=== PATIENT | male | born 1965 | race African-American/Black ===

== ENCOUNTER → 2019-05-29 12:58 | Outpatient (CLI) | payer OTHER ==
[2013-07-28 08:47] VITALS: BMI 23.6
[~2019-05-29 12:58] MED LIST: NORCO 10/325 TA1 TA1 PO; VENTOLIN HFA18 GM INH
== END | disposition home or self-care (01) ==
LOC: D.RAD 12:58
PROVIDERS: ATTEND Pediatrics
DX: Z02.71 Encounter for disability determination (principal)

== ENCOUNTER 2019-06-28 04:42 | Inpatient (IN) | payer OTHER ==
[~2019-06-28] VITALS: Ht 172.7 cm; Wt 78.6 kg
--- NOTE | ~2019-06-28 | CN ---
PATIENT NAME:ARNAV FORMAN MEDICAL RECORD: [id number] : 63 LOCATION:[facility] D.2126 ADMIT DATE: 06/28/19 ACCOUNT: [id number] CONSULTING PHYSICIAN: ROSELINE DELAROSA MD REFERRING PHYSICIAN: ALEXIS TEJEDA MD DATE OF CONSULTATION: 07/05/2019 DIAGNOSES: 1. Shortness of breath, dyspnea on exertion. 2. Bacteremia. 3. Valvular heart disease, aortic valve abnormality. 4. Angina. 5. Abnormal ECG. 6. Chronic obstructive pulmonary disease. 7. Smoking history. 8. Family history of coronary artery disease. HISTORY OF PRESENT ILLNESS: Mr. Forman presents with shortness of breath, dyspnea on exertion, found to be bacteremic. He had an echocardiogram showing an abnormality of the aortic valve. His bacteremia is clearing; however, physicians involved want transesophageal echo for further evaluation of the valve to evaluate for endocarditis, which was reasonable due to his continued need for antibiotics. As well, he has been having chest pain and chest discomfort compatible with angina, dull aching sensation across the anterior chest, especially with any exertion. His EKG suggests inferior ischemia. He has a family history of coronary artery disease. He has not had a workup for ischemic heart disease himself. PHYSICAL EXAMINATION: CONSTITUTIONAL/GENERAL APPEARANCE: Well nourished, well developed, appears stated age. EYES: Lids and conjunctivae noninjected. No discharge. No pallor. ENT: Lips within normal limit. No cyanosis. No pallor. NECK: Carotid arteries, bilateral normal upstroke. No bruits. No thrills. No jugular venous pressure or distention. CERVICAL LYMPH NODES: Nontender. Nonenlarged. THYROID: Not enlarged. No nodules. CARDIOVASCULAR: Precordial exam, nondisplaced. No heaves or pericardial thrills. Rate and rhythm, regular. Heart sounds, normal S1, normal S2. No S3, no gallop, no rub. Systolic murmur, not heard. Diastolic murmur, not heard. RESPIRATORY: Respiratory effort, unlabored. Normal curvature. No thoracic deformity. No chest wall tenderness. Percussion, resonant. Auscultation, clear. No wheezes, no rales, no rhonchi. ABDOMEN: Soft, nondistended, nontender. No abdominal pain, no vomiting and normal appetite. MUSCULOSKELETAL: No joint tenderness, normal gait, normal tone. SKIN: Warm and dry. OVERALL IMPRESSION: Bacteremia being treated with IV antibiotics, abnormal aortic valve. We will proceed with transesophageal echocardiogram and at the same time, we will do left heart catheterization. TRANSINT:[id number] Voice Confirmation ID: [id number] DOCUMENT ID: [id number] CONSULT REPORT [id number] ARNAV FORMAN JEFFREY MD CC: [id number] DICTATION DATE: 07/05/19 1148 CULTURIST: 07/05/19 1310 ADM IN [address] [place] [address]
--- NOTE | ~2019-06-28 | HEMODYNAMI ---
PATIENT:ARNAV PEREZ MEDICAL RECORD: [id number] : 63 [facility] D[id number] ADMISSION DATE: 06/28/19 Generatedon:07/06/201914:57 Patient name: ARNAV PEREZ Patient #: [id number] : 1965 Date of study: 07/06/2019 Page: Of Hemodynamic Procedure Report Patient Data Patient Demographics Procedure consent was obtained First Name: ARNAV Gender: Male Last Name: CHRIS : 1965 [facility] Initial: L Age: 54 year(s) Patient #: [id number] Race: Black SSN: [id number] Additional ID: [id number] Contact details Address: [address] [address] State: [place] City: [place] Zip code: [address] Admission Admission Data Admission Date: 06/28/2019 Admission Time: 6:21 Arrival Date: 06/28/2019 Arrival Time: 6:21 Admit Source: Other Insurance Payor: Private Room #: D.2126 health insurance [facility] #: [id number] Height (in.): 68.11 BSA: 1.89 (m2) Height (cm.): 173 BMI: 25.06 (kg/m2) Weight (lbs.): 165.35 Weight (kg.): 75 Lab Results Lab Result Date: 07/06/2019 Lab Result Time: 0:00 Biochemistry Name Units Result Min Max BUN mg/dl 17 --(---*)-- 7 18 Creatinine mg/dl 1.3 --(---*)-- 0.6 1.3 eGFR ml/min 67.06798 *-(----)-- 90 120 NONAFRICAN CBC Name Units Result Min Max Hemoglobin g/dl 12.7 -*(----)-- 13.5 17.5 Procedure Procedure Types Cath Procedure Diagnostic Procedure [facility] MIKE Procedure Description Procedure Date Procedure Date: 07/06/2019 Procedure Start Time: 0:00 Procedure Staff Name Function Loco Collins MD Performing Physician Gertrude Galvez RT Monitor Gerry Jernigan RN Nurse Yaz aBez RT Scrub Noam Ortega Pad Making Machine Operator Avi Lantigua CRNA Additional personnel Indication Angina Procedure Data Cath Procedure Fluoroscopy Diagnostic fluoroscopy Total fluoroscopy Time: 0 time: 0 min min Diagnostic fluoroscopy Total fluoroscopy dose: 0 dose: 0 mGy mGy Contrast Material Contrast Material Type Amount (ml) Isovue 300 0 Estimated blood loss: 0 ml Procedure Complications No complications Procedure Medications Medication Administration Route Dosage Oxygen etCO2 Nasal cannula 2 l/min Heparin Flush Bag added to field 2 bags (1000units/500ml NS) 0.9% NaCl I.V. 100 ml/hr Hurricaine [place] P.O. 1 Sprays Hemodynamics Rest BSA: 1.89 (m2) HGB: 12.7 (g/dl) O2 Consumption: Estimated: 247.08 (ml/min) O2 Co nsumption indexed: Estimated:130.73 (ml/min/m) Heart Rate: 102 (bpm) Snapshots Pre Cath Intra NCS Post Cath Vital Signs Time Heart Resp SPO2 etCO2 NIBP (mmHg) Rhythm Pain Sedation Rate (ipm) (%) (mmHg) Status Level (bpm) 14:10:48 105 20 97 13.5 146/113(130) NSR 0 (11) 10(A) , No pain 14:14:56 90 16 98 14.2 157/116(132) NSR 0 (11) 10(A) , No pain 14:19:08 97 18 99 14.2 154/110(134) NSR 0 (11) 10(A) , No pain 14:23:18 118 23 95 13.5 151/124(134) NSR 0 (11) 10(A) , No pain 14:28:02 110 22 95 11.2 126/96(109) NSR 0 (11) 9(A) , No pain 14:31:56 112 34 90 12.7 93/71(88) NSR 0 (11) 9(A) , No pain 14:36:47 114 21 92 0 138/114(130) NSR 0 (11) 9(A) , No pain 14:41:46 125 14 96 0 156/122(134) NSR 0 (11) 9(A) , No pain Medications Time Medication Route Dose Verified Delivered Reason Notes Eff ectiveness by by 14:11:45 Oxygen etCO2 2 Loco Garrett used for Nasal l/min Karina Jernigan RN procedure cannula 14:11:56 Heparin Flush added 2 bags Loco Garrett used for Bag to Karina Jernigan RN procedure (1000units/500ml field NS) 14:12:03 0.9% NaCl I.V. 100 Loco Garrett Per ml/hr Karina Jernigan RN physician 14:13:12 Hurricaine [place] P.O. 1 Loco Garrett Per Sprays Karina Jernigan RN physician Procedure Log Time Note 13:34:25 Diagnostic Cath Status : Urgent 13:37:15 Informed consent obtained and on chart 13:38:47 Lab Result : Hemoglobin 12.7 g/dl 13:38:47 Lab Result : eGFR NONAFRICAN 67.78195 ml/min 13:38:47 Lab Result : BUN 17 mg/dl 13:38:47 Lab Result : Creatinine 1.3 mg/dl 13:40:32 Admit Source: Other 13:40:40 Arrival Date: 06/28/2019 6:21:00 AM 13:41:01 Insurance Payor : Private health insurance 13:41:14 Patient Height : 68.11 inches 13:41:20 Patient Weight : 165.35 lbs 13:42:09 Gerry Jernigan RN sent for patient. Start room use. 13:42:10 Time tracking: Regular hours (M-F 7:00 - 5:00) 13:42:15 Plan of Care:Hemodynamics will remain stable., Cardiac rhythm will remain stable., Comfort level will be maintained., Respiratory function will remain adequate., Patient/ family verbilizes understanding of procedure., Procedure tolerated without complication., Recovers from procedure without complications.. 14:00:47 Patient received from Med II to CCL 2 Alert and oriented. Tansferred to table in Supine position. 14:01:24 Indication : Angina 14:01:30 Warm blankets applied, and skip hugger turned on for patient comfort. 14:01:31 Correct patient and procedure confirmed by team. 14:01:31 ECG and BP/O2 sat monitors applied to patient. 14:04:23 Insertion/operative site no bleeding no hematoma. 14:06:47 2) 60-89 Mildly reduced kidney function, and other findings (as for stage 1) point to kidney disease. 14:09:42 Vital chart was started 14:09:45 Baseline sample Acquired. 14:09:51 Full Disclosure recording started 14:09:57 H&P Date Dictated: 07/06/2019 New H&P dictated by physician.. 14:09:59 Pre-procedure instructions explained to patient. 14:10:00 Pre-op teaching completed and patient verbalized understanding. 14:10:04 Family in patients room. 14:10:05 Patient NPO since Midnight. 14:10:09 Is the patient allergic to Iodine/contrast media? No. 14:10:10 Was the patient premedicated? Yes 14:11:03 Is patient on blood thinner?No 14:11:04 Patient diabetic? No. 14:11:09 Previous problem with sedation/anesthesia? No ? 14:11:12 Snore? Yes 14:11:13 Sleep apnea? No 14:11:13 Deviated septum? Yes 14:11:15 Opens mouth fully? Yes 14:11:16 Sticks out tongue? Yes 14:11:21 Airway obstruction? Yes ASTHMA 14:11:25 Dentures? No ? 14:11:36 Pre procedure: right dorsailis pedis pulse 2+ Normal; easily identifiable; not easily obliterated 14:11:39 Patient pain scale 0/10 ?. 14:11:45 Oxygen 2 l/min etCO2 Nasal cannula was administered by Gerry Jernigan RN; used for procedure; Verbal order read back and verified. 14:11:50 IV patent on arrival in left forearm with 0.9% NaCl at [facility]. 14:11:53 Lab results completed and on chart. 14:11:56 Heparin Flush Bag (1000units/500ml NS) 2 bags added to field was administered by Gerry Jernigan RN; used for procedure; Verbal order read back and verified. 14:11:57 Stress Test: no; N/A ? 14:12:03 0.9% NaCl 100 ml/hr I.V. was administered by Gerry Jernigan RN; Per physician; Verbal order read back and verified. 14:12:04 Risk of Mortality: <0.1 14:12:09 Risk of blood transfusion: 0.6 14:12:13 Risk of RAYMOND: 1.0 14:12:50 Right groin area was prepped with chlora-prep and aped in sterile fashion 14::51 Alarms reviewed by R. N. 14:12:51 Sharps counted by scrub and verified by R.N. 14:13:12 Hurricaine [place] 1 Sprays P.O. was administered by Gerry Jernigan RN; Per physician; Verbal order read back and verified. 14:21:45 Physician arrived 14::46 --------ALL STOP TIME OUT------ ::46 Final Timeout: patient, procedure, and site verified with staff and physician. All members of the team are in agreement. 14:21:50 Right groin site verified by team. 14:21:53 Fire Safety Assessment: A--An alcohol-based skin anteseptic being used preoperatively., C--Open oxygen or nitrous oxide is being used., D--An ESU, laser, or fiber-optic light is being used. 14:21:56 Physical assessment completed. ASA score P 2 - A patient with mild systemic disease as per Loco Collins MD. 14:22:01 Maximum allowable contrast dose (3.7 X eGFR X 0.75)188 ml. 14:22:05 Sedation plan: IV Moderate Sedation Medication:Versed, Fentanyl 14:22:18 Avi Lantigua HYDROGRAPHICAL TECHNICAL OFFICER present and monitoring patient for TIVA. 14:22:36 Noam Ortega Photo Machine Operator present for MIKE. 14:24:46 MIKE started. 14:25:39 MIKE completed. 14:26:06 Use device set Femoral Dx 14:26:07 ACIST Syringe (16781) opened to sterile field. 14:26:07 Bag Decanter (2002S) opened to sterile field. 14:26:08 Medline Cath Pack ([id number]) opened to sterile field. 14:26:09 ACIST Hand Control (39883) opened to sterile field. 14:26:09 ACIST Manifold (33679) opened to sterile field. 14:26:10 DIAGNOSTIC Multipack 5Fr catheter set (BW1349) opened to sterile field. 14:26:10 Tegaderm 4 x 4 (1626W) opened to sterile field. 14:26:11 SHEATH 5FR Concan (CBY114) opened to sterile field. 14:26:12 EMERALD Guide Wire (606-508) opened to sterile field. 14:27:23 pt experiencing trouble breathing at this time with swelling of the tissue of the neck, at this time anesthesia has pt intubated with size 7 et tube, being oxygentated with ambu bag at 23 at the lip. Nurse to assist to ct scan to gain further information. Pt had emesis of brown fluid and some food particles noted. pt airway was suctioned prior to intubation. 14:40:18 while preparing patient for LHC following the MIKE, patient sats dropped and he began vomiting, when attempting to bag the patient, staff noticed his neck bulging, Dr Collins cancelled LHC and ordered a CT of the head and chest. 14:41:03 Procedure ended.(Physican Out) 14:42:09 Fluoroscopy time 00.00 minutes. 14:42:11 Flurop Dose total: 0 14:42:11 Fluoroscopy dose: 0 mGy 14:42:13 Dose Area Product 0 mGy/cm. 14:42:18 Contrast amount:Isovue 300 0ml. 14:42:20 Maximum allowable dose exceeded? No. 14:42:21 Sharps counted by scrub and verified by R.N. 14:42:29 Post Procedure Pulses reassessed and unchanged 14:42:33 Post procedure rhythm: unchanged. 14:42:37 Estimated blood loss: 0 ml 14:42:38 Post procedure instruction explained to patient.Patient verbalizes understanding. 14:42:38 Patient needs reinforcement of post procedure teaching. 14:42:59 Procedure type changed to Cath procedure, Diagnostic procedure, LHC, MIKE 14:42:59 Procedure and supply charges have been captured, reviewed, submitted and are correct. 14:43:04 Procedure Complication : No complications 14:43:07 Vital chart was stopped 14:43:19 MIKE Findings: MIKE w/ cardioversion: no left atrial clot noted (proceed with cardioversion) 14:43:20 Operative report dictated upon procedure completion. 14:43:20 See physician's report for complete and final results. 14:43:25 Report given to ICU. 14:43:28 Patient transfered to ICU with Stretcher. 14:44:02 End room use (Document Last) 14:56:02 End room use (Document Last) 14:56:59 End room use (Document Last) Device Usage Item Name Manufacture Quantity Catalog Hospital Part Current Minimal L ot# / Number Charge Number Stock Stock Serial# Code ACIST Acist 1 56431 [id number] 026480 380936 20 Syringe Medical (73962) Systems Inc Bag Microtek 1 2001S 647684 07475 910317 5 Decanter Medical Inc. () Medline Medline 1 [id number] 037091 19398 248642 5 Cath Pack ([id number]) ACIST Hand Acist 1 95549 880704 109817 658508 5 Control Medical (25237) Systems Inc ACIST Acist 1 50179 638699 164056 076376 5 Manifold Medical (26984) Systems Inc DIAGNOSTIC Cardinal 1 TO2066 073406 79200 921800 30 Stalwart [employer] 5Fr catheter set (LE1451) Tegaderm 4 3M 1 1626W 527954 352581 860168 5 x 4 (1626W) SHEATH 5FR Terumo 1 [id number] 253643 825403 063579 5 Concan (WLK424) [facility] Cardinal 1 897-741 464427 402571 256358 5 Guide [facility] (302-783) Signature Audit [place] Stage Time Signature Unsigned Intra-Procedure 07/06/2019 Gertrude Galvez 2:56:02 PM RT(R) Intra-Procedure 07/06/2019 Gerry Jernigan RN 2:56:59 PM Intra-Procedure 07/06/2019 Loco Collins 2:57:26 PM Signatures Performing Physician : Signature : Loco Collins MD Date : Time : Monitor : Gertrude Galvez RT Signature : Date : Time : Nurse : Gerry Jernigan RN Signature : Date : Time : [facility] [address] [place] [address]
--- NOTE | ~2019-06-28 | TEE ---
PATIENT:ARNAV PEREZ MEDICAL RECORD: [id number] LOCATION[facility] AGE OF PATIENT: 54 ADMISSION DATE: 06/28/19 SEX: M REFERRING PHYSICIAN: INTERPRETING PHYSICIAN: ROSELINE DELAROSA MD TRANSESOPHAGEAL ECHOCARDIOGRAM Date: 07/08/19 MIKE CHARGE Y INDICATIONS: BACTREMIA, ASSESS FOR VEGATIONS/STENOSIS PREMEDICATIONS: PATIENT'S RESPONSE PROCEDURE DOPPLER MEASUREMENTS: LVIT LA 0 PA 0 RA 0 LVOT 0 RVOT 0 Asc. Ao 0 AV Gradient Peak 0 AV Mean 0 AV Area 0 MV Gradient Peak 0 MV Mean 0 MV Area 0 INTERPRETATION: Doppler: 2-D: COLOR FLOW DOPPLER ALL VALVES CLEAR... NORMAL SALINE STUDY: MISCELLANOUS: DIAGNOSIS: PLAN: Snowboarder:Breezy Chacon Filling Carrier: Kanchan SANCHEZ COMMENTS: DATE OF SERVICE: 07/06/2019 PROCEDURE: Transesophageal echo evaluation of valvular structures for possible endocarditis. Conscious sedation was per anesthesia. Continuous heart rate, O2 saturation, blood pressure monitoring all undertaken, all of which remained stable. FINDINGS: TRANSESOPHAGEAL ECHOCARDIOGRAM REPORT [id number] ARNAV PREEZ 1. Left ventricular chamber size is within normal limits. Left ventricular systolic function is normal. Overall ejection fraction estimated at 60%. 2. Left atrium, right atrium and right ventricular chamber sizes are mildly dilated. 3. Valvular structures have normal structure and motion. No evidence of endocarditis. 4. Doppler interrogation reveals no significant valvular insufficiency or stenosis. OVERALL IMPRESSION: No evidence of vegetative endocarditis. TRANSINT:[id number] Voice Confirmation ID: [id number] DOCUMENT ID: [id number] ROSELINE DELAROSA MD CC: [id number] DICTATION DATE: 07/06/19 1429 CEMENT MIXER DRIVER: 07/07/19 0701 ADM IN [facility] [address] [place] [address]
--- NOTE | ~2019-06-28 | TEE ---
PATIENT:ARNAV PEREZ MEDICAL RECORD: [id number] LOCATION:ICU D230 AGE OF PATIENT: 54 ADMISSION DATE: 06/28/19 SEX: M REFERRING PHYSICIAN: INTERPRETING PHYSICIAN: ROSELINE COLLINS MD TRANSESOPHAGEAL ECHOCARDIOGRAM Date: 07/06/19 MIKE CHARGE Y INDICATIONS: BACTREMIA, ASSESS FOR VEGATIONS/STENOSIS PREMEDICATIONS: PATIENT'S RESPONSE PROCEDURE DOPPLER MEASUREMENTS: LVIT LA PA 87.0 RA LVOT 72.0 RVOT 51.0 Asc. Ao 126 AV Gradient Peak 6.3 AV Mean 3.3 AV Area 1.6 MV Gradient Peak 2.8 MV Mean 1.0 MV Area INTERPRETATION: Doppler: 2-D: COLOR FLOW DOPPLER ALL VALVES CLEAR... NORMAL SALINE STUDY: MISCELLANOUS: DIAGNOSIS: PLAN: Rod Bending Machine Operator:1 Dr. Collins Horticulture Worker: Breezy ESCOBAR COMMENTS: DATE OF SERVICE: 07/06/2019 ADDENDUM After the transesophageal echo, he was being recovered by anesthesia. He developed hypoxia and neck swelling. He did not have any overt bleeding. He did aspirate some food even though he should have been n.p.o. He threw up some food as well. He was immediately intubated. Hypoxia was very short lived. The airway was controlled. There was no blood out the ET tube. He is leaving the TRANSESOPHAGEAL ECHOCARDIOGRAM REPORT [id number] ARNAV PEREZ clinical laboratory technologist in stable hemodynamic and respiratory condition to go to CAT scan, from there to go to the ICU. TRANSINT:[id number] Voice Confirmation ID: [id number] DOCUMENT ID: [id number] ROSELINE COLLINS MD CC: [id number] DICTATION DATE: 07/06/19 1441 PUBLIC RELATIONS ANALYST: 07/07/19 0706 ADM IN [facility] [address] [id number]
[2019-06-28 05:21] LABS: BASOPHILS 0.2 % (0-2); EOSINOPHILS 2.2 % (0-7); HEMOGLOBIN 17.3 g/dL (13.5-17.5); IMMATURE GRANULOCYTES 0.2 % (0-5); LYMPHOCYTES 36.4 % (15-50); MCH 31.5 pg (26.0-34.0); MCHC 33.3 g/dL (31.0-37.0); MCV 94.7 fL (80.0-100.0); MEAN PLATELET VOLUME 9.6 fL (7.4-10.4); RBC 5.49 10x6/uL (4.20-6.10); RDW 13.3 % (11.5-14.5); WBC 4.1 10x3/uL (4.8-10.8)
--- NOTE | 2019-06-28 05:21 | NUR ---
RT AT PT BEDSIDE, PT RECEIVING BREATHING TX
[2019-06-28 05:25] LABS: PLATELET COUNT 126 10x3/uL (130-400)
[2019-06-28 05:44] LABS: APTT 30.1 SECONDS (22.8-39.4); INR 1.09 (0.85-1.17); PROTIME 13.6 SECONDS (11.6-15.0)
[2019-06-28 05:54] LABS: CALC OSMOLALITY 283 mosm/kg (275-300); CALCIUM 8.4 mg/dL (8.5-10.1); CARBON DIOXIDE 26.2 mmol/L (21.0-32.0); CHLORIDE - SERUM 107 mmol/L (98-107); GLUCOSE 114 mg/dL (74-106); POTASSIUM - SERUM 5.4 mmol/L (3.5-5.1); SODIUM 141 mmol/L (136-145); UREA NITROGEN 19 mg/dL (7-18); eGFR NON AFRICAN AMERICAN 37 mL/min (90-120)
[2019-06-28 06:00] VITALS: BP 132/89
[2019-06-28 06:11] LABS: ALBUMIN 3.4 g/dL (3.4-5.0); ALKALINE PHOSPHATASE 80 U/L (46-116); BILIRUBIN - TOTAL 0.58 mg/dL (0.2-1.3); CKMB 3.1 U/L (0.0-3.6); CREATINE KINASE 243 UL (21-232); PRO BNP 4383 pg/mL (0-125); PROTEIN - SERUM 7.4 g/dL (6.4-8.2); TROPONIN-I 0.019 ng/mL (0.000-0.060)
[2019-06-28 06:12] LABS: ALT (SGPT) 16 U/L (10-68)
[2019-06-28 06:30] VITALS: BP 136/82
--- NOTE | 2019-06-28 07:20 | NUR ---
ARRIVE TO ROOM VIA WHEELCHAIR. AMBULATES TO BED. GAIT STEADY. ALERT AND ORIENTED X4. ACCOMPANIED BY SPOUSE. O2 @ 3L. IV INFUSING ORDERED. REFUSE SCDs. UP AD LIN. CONTINUE ADMISSION PROCESS. CONTINUE PLAN OF CARE AND SAFETY PRECAUTIONS.
[2019-06-28 10:23] VITALS: BP 120/85; BMI 21.6
[2019-06-28 12:00] VITALS: BP 118/78
[2019-06-28 16:32] VITALS: BP 121/73
--- NOTE | 2019-06-28 18:15 | NUR ---
ALERT AND ORIENTED X4. SITTING UP IN BED. SPOUSE AT BEDSIDE. DENIES ANY NEEDS AT THIS TIME. CONTINUE PLAN OF CARE AND SAFETY PRECAUTIONS.
[2019-06-28 18:18] LABS: UDS - AMPHET NEGATIVE QUAL (NEGATIVE); UDS - BARB NEGATIVE QUAL (NEGATIVE); UDS - BENZO NEGATIVE QUAL (NEGATIVE); UDS - COCAINE POSITIVE QUAL (NEGATIVE); UDS - OPIATE NEGATIVE QUAL (NEGATIVE); UDS - PCP NEGATIVE QUAL (NEGATIVE); UDS - THC NEGATIVE QUAL (NEGATIVE)
[2019-06-28 18:21] LABS: APPEARANCE CLEAR (CLEAR); BILIRUBIN NEGATIVE (NEGATIVE); COLOR YELLOW (YELLOW); GLUCOSE 1000 mg/dL (NEGATIVE); KETONE NEGATIVE (NEGATIVE); NITRITE NEGATIVE (NEGATIVE); PROTEIN TRACE mg/dL (NEGATIVE); SPECIFIC GRAVITY 1.015 (1.005-1.020); UROBILINOGEN NORMAL (NORMAL)
[2019-06-28 18:22] LABS: BACTERIA FEW /hpf (NEGATIVE); WHITE CELLS - URINE OCC /hpf (NEGATIVE)
[2019-06-28 20:45] VITALS: BP 131/84
[2019-06-29 00:30] VITALS: BP 132/95
[2019-06-29 04:30] VITALS: BP 133/91
[2019-06-29 05:54] LABS: BASOPHILS 0 % (0-2); EOSINOPHILS 0 % (0-7); HEMATOCRIT 42.4 % (42.0-54.0); HEMOGLOBIN 13.9 g/dL (13.5-17.5); IMMATURE GRANULOCYTES 0.2 % (0-5); MCH 31.3 pg (26.0-34.0); MCHC 32.8 g/dL (31.0-37.0); MCV 95.5 fL (80.0-100.0); MEAN PLATELET VOLUME 10.3 fL (7.4-10.4); NEUTROPHILS 83.8 % (40-80); PLATELET COUNT 111 10x3/uL (130-400); RBC 4.44 10x6/uL (4.20-6.10); RDW 13.7 % (11.5-14.5)
[2019-06-29 06:07] LABS: WBC 5.6 10x3/uL (4.8-10.8)
[2019-06-29 06:08] LABS: CALCIUM 7.9 mg/dL (8.5-10.1); CREATININE - SERUM 1.6 mg/dL (0.6-1.3); MAGNESIUM - SERUM 1.5 mg/dL (1.8-2.4)
[2019-06-29 06:14] LABS: ANION GAP 18.5 mmol/L (8-16); CARBON DIOXIDE 18.3 mmol/L (21.0-32.0); POTASSIUM - SERUM 3.8 mmol/L (3.5-5.1)
--- NOTE | 2019-06-29 07:20 | NUR ---
RECIEVE REPORT. RESTING IN BED WITH EYES CLOSED. SPOUSE UP AMBULATING IN ROOM. CONTINUE PLAN OF CARE AND SAFETY PRECAUTIONS.
[2019-06-29 09:20] VITALS: BP 139/96
[2019-06-29 13:41] VITALS: BP 136/57
--- NOTE | 2019-06-29 16:26 | NUR ---
ALERT AND ORIENTED X4. SITTING UP IN BED. SPOUSE AT BEDSIDE. AT BEDSIDE. DENIES ANY NEEDS AT THIS TIME. CONTINUE PLAN OF CARE AND SAFETY PRECAUTIONS.
[2019-06-29 16:32] VITALS: BP 145/85
[2019-06-29 20:00] VITALS: BP 135/91
--- NOTE | 2019-06-29 23:45 | NUR ---
REPORT RECIEVED AND ROUNDING COMPLETE. PATIETN LAYING IN BED RECIEVING A BREATHING TREATMENT. PATIENT STATES HE HAS NO NEEDS AT THIS TIME. PATIENT SHOWING NO S/SX OF DISTRESS. PATIENT HAS A PATENT RIGHT AC THAT PIV IS RUNNING NS. PIV SHOWING NO S/SX OF INFILTRATION AT THIS TIME. CALL LIGHT WITHIN REACH AND BED IN LOWEST LOCKED POSITION.
[2019-06-30] VITALS: BP 140/100
--- NOTE | 2019-06-30 02:44 | NUR ---
I have reviewed this patient and I concur with the Shift Assessment completed by the Licensed Practical Nurse today this shift.
[2019-06-30 04:00] VITALS: BP 134/99
[2019-06-30 06:18] LABS: BASOPHILS 0.1 % (0-2); EOSINOPHILS 0 % (0-7); HEMATOCRIT 42.6 % (42.0-54.0); HEMOGLOBIN 14.2 g/dL (13.5-17.5); IMMATURE GRANULOCYTES 0.2 % (0-5); LYMPHOCYTES 7.9 % (15-50); MCH 31.8 pg (26.0-34.0); MCHC 33.3 g/dL (31.0-37.0); MCV 95.5 fL (80.0-100.0); MEAN PLATELET VOLUME 10.2 fL (7.4-10.4); MONOCYTES 2.4 % (2-11); NEUTROPHILS 89.4 % (40-80); PLATELET COUNT 108 10x3/uL (130-400); RBC 4.46 10x6/uL (4.20-6.10); RDW 13.8 % (11.5-14.5)
[2019-06-30 06:28] LABS: ANION GAP 13.8 mmol/L (8-16); CALCIUM 8.3 mg/dL (8.5-10.1); CARBON DIOXIDE 22.4 mmol/L (21.0-32.0); CREATININE - SERUM 1.4 mg/dL (0.6-1.3); POTASSIUM - SERUM 4.2 mmol/L (3.5-5.1)
[2019-06-30 06:34] LABS: WBC 9.4 10x3/uL (4.8-10.8)
[2019-06-30 06:38] LABS: MAGNESIUM - SERUM 1.9 mg/dL (1.8-2.4)
--- NOTE | 2019-06-30 08:17 | NUR ---
ASSESSMENT DONE. DENIES NEEDS
[2019-06-30 09:38] VITALS: BP 131/99
--- NOTE | 2019-06-30 10:15 | NUR ---
I have reviewed this patient and I concur with the Shift Assessment completed by the Licensed Practical Nurse today this shift.
[2019-06-30 13:24] VITALS: BP 124/88
--- NOTE | 2019-06-30 19:00 | NUR ---
PT IS UP AMBLITORY IN ROOM I ASSISTED WITH COMFORT AND PROVIDED STUFFS FOR FUTURE BATH BED IS LOW AND LOCKED AND PT HAS CALL LIGHT
[2019-06-30 20:40] VITALS: BP 100/72
[2019-07-01 00:20] VITALS: BP 145/102
[2019-07-01 06:58] LABS: BASOPHILS 0.1 % (0-2); EOSINOPHILS 0 % (0-7); HEMATOCRIT 40.9 % (42.0-54.0); HEMOGLOBIN 13.5 g/dL (13.5-17.5); LYMPHOCYTES 14.8 % (15-50); MCH 31.5 pg (26.0-34.0); MCV 95.3 fL (80.0-100.0); MEAN PLATELET VOLUME 10.1 fL (7.4-10.4); NEUTROPHILS 82.1 % (40-80); PLATELET COUNT 111 10x3/uL (130-400); RBC 4.29 10x6/uL (4.20-6.10); RDW 13.9 % (11.5-14.5)
[2019-07-01 07:05] LABS: WBC 6.8 10x3/uL (4.8-10.8)
[2019-07-01 07:12] LABS: ANION GAP 13.8 mmol/L (8-16); CALCIUM 8.3 mg/dL (8.5-10.1); CARBON DIOXIDE 24.4 mmol/L (21.0-32.0); CREATININE - SERUM 1.5 mg/dL (0.6-1.3); MAGNESIUM - SERUM 2.1 mg/dL (1.8-2.4); POTASSIUM - SERUM 4.2 mmol/L (3.5-5.1)
--- NOTE | 2019-07-01 07:30 | NUR ---
PT RESTING. DENIES NEEDS OR PAIN AT THIS TIME. RR EVEN AND UNLABORED. IV NOTED TO RIGHT FOREARM,SL. 1000- PT C/O IV SITE SWOLLEN AND BLOODY. IV D/C WITH CATHETER TIP INTACT. RESITED X1 ATTEMPT TO LEFT FOREARM.
[2019-07-01 08:00] VITALS: BP 144/85
--- NOTE | 2019-07-01 08:54 | EC ---
PATIENT:ARNAV PEREZ DATE OF SERVICE: 06/28/19 SEX: M MEDICAL RECORD: [id number] DATE OF : 63 LOCATION:D.M2 D.212 AGE OF PATIENT: 54 ADMISSION DATE: 06/28/19 REFERRING PHYSICIAN: INTERPRETING PHYSICIAN: LILIAM CHRISTIAN MD ECHOCARDIOGRAM REPORT ECHO CHARGES 4 ECHO COMPLETE Date: 06/29/19 CLINICAL DIAGNOSIS: DYSPNEA H/O COCAINE USE ECHOCARDIOGRAPHIC MEASUREMENTS (adult normal given) AC root (d.<3.7cm) 3.1 cm LV Septum d (<1.2 cm> 1.4 cm Valve Excursion 1.9 cm LV Septum (systole) 1.6 cm Left Atria (s.<4.0cm> 3.2 cm LVPW d(<1.2cm) 1.3 cm RV (d.<2.3cm) 4.4 cm LVPW (sytole) 1.6 cm LV diastole(<5.6CM) 3.7 cm MV E-F(>70mm/sec) cm LV systole 2.1 cm LVOT Diameter 1.9 cm MV exc.(>10mm) cm Est.ejection fraction (50-75%) % DOPPLER: LVIT cm/sec A 37.0 cm/sec E 63.0 cm/sec LA cm/sec RVSP 98.2 mmHg LVOT 72.0 cm/sec AOP1/2T m/s Asc. Ao 126 cm/sec RVOT 51.0 cm/sec RA cm/sec PA 87.0 cm/sec AV Gradient Peak 6.3 mmHg AV Mean 3.3 mmHg AV Area 1.6 cm MV Gradient Peak 2.8 mmHg MV Mean 1.0 mmHg MV Area cm COMMENTS: Air Tool Operator: 1 MARCELINA NADIA Aquarium Tank Attendant: 3 Dr. Ortega TAPE# PACS Pericardial Effusion Y DATE OF SERVICE: Adequate 2D echo, Color Flow, Spectral Doppler, M-mode LVH is present. LV internal dimensions are normal. LV is mildly globally hypo with reduced EF, estimated EF 30% to 35%. Aortic valve has sclerosis without stenosis by Doppler interrogation. Left atrium normal at 3.2 cm. Mitral valve shows no prolapse. Trace MR. Right-sided chambers are grossly normal. Trace TR. ECHOCARDIOGRAM REPORT [id number] ARNAV PEREZ TRANSINT:[id number] Voice Confirmation ID: [id number] DOCUMENT ID: [id number] LILIAM CHRISTIAN MD at 0854 CC: [id number] DICTATION DATE: 06/30/19 1309 JUICE PACKAGING MACHINES SETTER: 06/30/19 1906 ADM IN [facility] [address] [id number]
[2019-07-01 12:16] VITALS: BP 145/103
--- NOTE | 2019-07-01 16:10 | NUR ---
I have reviewed this patient and I concur with the Shift Assessment completed by the Licensed Practical Nurse today this shift.
[2019-07-01 17:16] VITALS: BP 154/95
[2019-07-01 20:00] VITALS: BP 152/88
[2019-07-02] VITALS: BP 151/105
[2019-07-02 04:00] VITALS: BP 107/77
[2019-07-02 07:04] LABS: BASOPHILS 0.2 % (0-2); EOSINOPHILS 0 % (0-7); HEMATOCRIT 39.4 % (42.0-54.0); HEMOGLOBIN 12.9 g/dL (13.5-17.5); IMMATURE GRANULOCYTES 0.2 % (0-5); LYMPHOCYTES 15.4 % (15-50); MCH 31.2 pg (26.0-34.0); MCHC 32.7 g/dL (31.0-37.0); MCV 95.2 fL (80.0-100.0); MEAN PLATELET VOLUME 9.5 fL (7.4-10.4); MONOCYTES 3.3 % (2-11); NEUTROPHILS 80.9 % (40-80); PLATELET COUNT 126 10x3/uL (130-400); RBC 4.14 10x6/uL (4.20-6.10); RDW 13.5 % (11.5-14.5); WBC 6.6 10x3/uL (4.8-10.8)
[2019-07-02 07:14] LABS: ANION GAP 9.6 mmol/L (8-16); CALCIUM 8.1 mg/dL (8.5-10.1); CREATININE - SERUM 1.3 mg/dL (0.6-1.3); POTASSIUM - SERUM 3.6 mmol/L (3.5-5.1)
--- NOTE | 2019-07-02 07:48 | NUR ---
ALERT AND ORIENTED. 02 AT 2 L/M PER NC. IV TO LEFT FA WITH NS AT 75. DENIES ANY NEEDS. WILL MONITOR. VISITOR AT BEDSIDE
[2019-07-02 08:50] VITALS: BP 107/71
[2019-07-02 12:34] VITALS: Ht 172.7 cm; Wt 78.6 kg
--- NOTE | 2019-07-02 14:15 | NUR ---
LYING QUIETLY. DENIES ANY NEEDS. SR UP WITH CALL LIGHT IN REACH WILL MONITOR
[2019-07-02 14:17] VITALS: BP 134/90
[2019-07-02 16:00] VITALS: BP 156/97
--- NOTE | 2019-07-02 19:56 | NUR ---
EVENING ROUNDS COMPLETED. PT AAOX4, VSS, NO S/S OF RT DISTRESS, RR EVEN AND UNLABORED. DROPLET PRECAUTIONS IN PLACE, SPOUSE AT BEDSIDE. PT DENIES ANY FURTHER NEEDS AT THIS TIME. WILL CPOC. CL WITHIN REACH.
[2019-07-02 20:00] VITALS: BP 143/90
[2019-07-03] VITALS: BP 144/68
[2019-07-03 04:00] VITALS: BP 110/76
[2019-07-03 05:25] LABS: BASOPHILS 0 % (0-2); EOSINOPHILS 0 % (0-7); HEMATOCRIT 39.2 % (42.0-54.0); HEMOGLOBIN 12.9 g/dL (13.5-17.5); IMMATURE GRANULOCYTES 0.1 % (0-5); LYMPHOCYTES 12.3 % (15-50); MCH 31.2 pg (26.0-34.0); MCHC 32.9 g/dL (31.0-37.0); MCV 94.9 fL (80.0-100.0); MEAN PLATELET VOLUME 9.2 fL (7.4-10.4); MONOCYTES 3.1 % (2-11); NEUTROPHILS 84.5 % (40-80); PLATELET COUNT 131 10x3/uL (130-400); RBC 4.13 10x6/uL (4.20-6.10); RDW 13.3 % (11.5-14.5); WBC 6.8 10x3/uL (4.8-10.8)
[2019-07-03 05:44] LABS: ANION GAP 11.7 mmol/L (8-16); CALCIUM 8.1 mg/dL (8.5-10.1); CARBON DIOXIDE 24.9 mmol/L (21.0-32.0); CREATININE - SERUM 1.3 mg/dL (0.6-1.3); MAGNESIUM - SERUM 1.9 mg/dL (1.8-2.4); POTASSIUM - SERUM 3.6 mmol/L (3.5-5.1)
--- NOTE | 2019-07-03 07:52 | NUR ---
ALERT AND ORIENTED. UP AB LIN. PT IS IN ISOLATIO. 02 AT 2 L/M PER NC. LEFT AR SL. DENIES ANY NEEDS. WILL MONITOR
[2019-07-03 08:10] LABS: HAPTOGLOBIN 225 mg/dL (29-370)
[2019-07-03 09:48] VITALS: BP 133/57
--- NOTE | 2019-07-03 10:08 | NUR ---
I have reviewed this patient and I concur with the Shift Assessment completed by the Licensed Practical Nurse today this shift.
[2019-07-03 11:10] LABS: IMMUNOGLOBULIN E 4191 IU/mL (6-495)
[2019-07-03 14:09] LABS: ACLA - IGG AB <9 GPL U/mL (0-14); ACLA - IGM AB <9 MPL U/mL (0-12)
--- NOTE | 2019-07-03 16:46 | MORECARE ---
CASE MANAGEMENT DISCHARGE SUMMARY PATIENT: ARNAV PEREZ UNIT: [id number] ADM DATE: 06/28/19 AGE: 54 : 63 SEX: M ROOM/BED: D.3324 AUTHOR: KASHDOC PHYSICIAN: REFERRING PHYSICIAN: ALEXIS TEJEDA MD DATE OF SERVICE: 07/03/19 Discharge Plan Patient Name: ARNAV PEREZ Facility: [facility]:[place] : 1965 Planned Disposition: Home Anticipated Discharge Date: Discharge Date: Expected LOS: Initial Reviewer: [email or web address] Initial Review Date: 07/03/2019 Generated: 07/03/19 5:45 pm Comments DCP- Discharge Planning Updated by [email or web address]: Navi Urbano on 07/03/19 3:[address] Patient Name: ARNAV PEREZ Admission Status: ER Accout number: [id number] Admission Date: 06-28-2019 : 1965 Admission Diagnosis: Attending: ALEXIS OG Current LOS: 5 Anticipated DC Date: Planned Disposition: Home Primary Insurance: NOVPrevotyS MANAGED MEDICAID Discharge Planning Comments: CM MET WITH PT AND SPOUSE IN ROOM TO DISCUSS DISCHARGE PLANNING AND NEEDS. ARNAV PEREZ provided verbal consent to discuss current and ongoing needs with/in the presence of: SPOUSE, AARON. PT REPORTS THEY HAVE BEEN HOMELESS UNTIL NOW AND PT IS INDEPENDENT IN HIS CARE. PT STATES THAT THEY NOW HAVE AN APARTMENT TO MOVE INTO WHEN HE IS DISCHARGED. IT IS UP 20 STEPS BUT LEVEL INSIDE THE APARTMENT. . PT HAS NO MEDICAL EQUIPMENT AND NO OUTSIDE SERVICES ASSISTING IN THE HOME. CM DISCUSSED AVAILABILITY OF HOME HEALTH, REHAB SERVICES AND MEDICAL EQUIPMENT. PT DENIES DISCHARGE NEEDS, REPORTS A FRIEND WILL PICK HE AND HIS UP FOR DISCHARGE HOME. PT PLANS TO DISCHARGE HOME WITH , HAS NO ANTICIPATED DISCHARGE NEEDS AT TH IS TIME. CM PROVIDED [facility] CLINIC INFORMATION PT HAS NO PRIMARY CARE DOCTOR. CM TO CONTINUE TO FOLLOW AND ASSIST IF NEEDED. Pecan Cleaner: Navi Urbano DCPIA - Discharge Planning Initial Assessment Updated by [email or web address]: Navi Urbano on 07/03/19 4:36 pm * Is the patient Alert and Oriented? Yes * How many steps to enter\exit or inside your home? 20 * PCP NONE - PROVIDED WITH [facility] * Pharmacy [facility] * Preadmission Environment Homeless * Other Environment LIVING WITH FRIENDS * Facility Name NONE * ADLs Independent * Equipment None * Other Equipment NO MEDICAL EQUIPMENT PROVIDER PREFERNCE * List name and contact numbers for known caregivers / representatives who currently or will assist patient after discharge: AARON PEREZ, SPOUSE, * Verbal permission to speak to the caregivers and representatives has been obtained from the patient. Yes * Community resources currently utilized None * Please name any agencies selected above. NONE * Additional services required to return to the preadmission environment? No * Can the patient safely return to the preadmission environment? Yes * Has this patient been hospitalized within the prior 30 days at any hospital? No Patient Name: ARNAV PEREZ Page [id number] at 1646 All edits/amendments must be made on the electronic document DICTATION DATE: 07/03/191644 IRRIGATION SYSTEM INSTALLER: LU 07/03/191644 RPT#: [id number] DC DATE: STATUS: ADM IN [facility] [address] [place] [address] END OF REPORT
--- NOTE | 2019-07-03 19:37 | NUR ---
RECEIVED REPORT, WILL ASSUME CARE OF PT, SITTING IN CHAIR, DENIES ANY NEEDS,VISITING WITH FAMILY, CALL LIGHT IN REACH, WILL CONTINUE PLAN OF CARE
[2019-07-03 20:00] VITALS: BP 132/83
[2019-07-04] VITALS: BP 123/79
--- NOTE | 2019-07-04 02:14 | NUR ---
I have reviewed this patient and I concur with the Shift Assessment completed by the Licensed Practical Nurse today this shift.
[2019-07-04 04:00] VITALS: BP 130/97
[2019-07-04 05:05] LABS: BASOPHILS 0 % (0-2); EOSINOPHILS 0 % (0-7); HEMATOCRIT 39.3 % (42.0-54.0); HEMOGLOBIN 12.7 g/dL (13.5-17.5); IMMATURE GRANULOCYTES 0.1 % (0-5); LYMPHOCYTES 12.5 % (15-50); MCH 31.3 pg (26.0-34.0); MCHC 32.3 g/dL (31.0-37.0); MCV 96.8 fL (80.0-100.0); MEAN PLATELET VOLUME 9.3 fL (7.4-10.4); MONOCYTES 4.6 % (2-11); NEUTROPHILS 82.8 % (40-80); PLATELET COUNT 147 10x3/uL (130-400); RBC 4.06 10x6/uL (4.20-6.10); RDW 13.3 % (11.5-14.5); WBC 8.2 10x3/uL (4.8-10.8)
[2019-07-04 05:20] LABS: ANION GAP 9.9 mmol/L (8-16); CARBON DIOXIDE 28.6 mmol/L (21.0-32.0); CREATININE - SERUM 1.4 mg/dL (0.6-1.3)
[2019-07-04 05:22] LABS: POTASSIUM - SERUM 4.5 mmol/L (3.5-5.1)
[2019-07-04 08:50] VITALS: BP 128/84
[2019-07-04 11:08] LABS: PROTEIN S - FREE 80 % (57-157); PROTEIN S - TOTAL 54 % (60-150)
[2019-07-04 11:59] VITALS: BP 125/76
[2019-07-04 13:09] LABS: LUPUS - INTERPRETATION Comment: (()); LUPUS - dRVVT 37.1 sec (0.0-47.0); PTT-LA 40.8 sec (0.0-51.9)
[2019-07-04 14:08] LABS: PROTEIN S - FREE 79 % (57-157); PROTEIN S - FUNCTIONAL 66 % (63-140); PROTEIN S - TOTAL 56 % (60-150)
[2019-07-04 16:41] VITALS: BP 117/77
--- NOTE | 2019-07-04 19:15 | NUR ---
RECEIVED REPORT, WILL ASSUME CARE OF PT, ASKING FOR HIS IV TO BE SL, EXPLAIN I WILL DO, UNTIL TIME FOR HIS ANTIBONIC, DENIES ANY OTHER NEEDS, SITTING IN CHAIR, VISITING WITH FAMILY, CALL LIGHT IN REACH, WILL CONTINUE PLAN OF CARE
[2019-07-04 20:00] VITALS: BP 133/89
[2019-07-05] VITALS: BP 119/89
[2019-07-05 04:00] VITALS: BP 127/82
--- NOTE | 2019-07-05 07:35 | NUR ---
PT RECEIVED ASLEEP IN BED. SHIFT REPORT GIVEN. BOARD UPDATED. NO NEEDS AT PRESENT.
[2019-07-05 08:48] VITALS: BP 132/82
[2019-07-05 13:08] VITALS: BP 136/105
[2019-07-05 17:00] VITALS: BP 114/88
[2019-07-05 20:40] VITALS: BP 128/90
--- NOTE | 2019-07-05 22:23 | NUR ---
INITIAL ROUNDS COMPLETED AT 191 HRS. PT DENIED ANY DISCOMFORT. ASSESSMENT COMPLETED AT 2019 HRS. VSS. ALERT AND ORIENTED TO PERSON, PLACE AND TIME.RICHEY. IV TO LFA WITH NS AT 75CC/HR. IV PATENT. LUNGS DIMINISHED IN BASES BILAT. PM MEDS GIVEN. PT CURRENTLY WATCHING TV. CALL LIGHT WITHIN REACH.
[2019-07-06] VITALS (18 sets, daily range): BP systolic 81–159; BP diastolic 49–131
--- NOTE | 2019-07-06 00:34 | NUR ---
PT AWAKE; DENIES ANY DISCOMFORT. CALL LIGHT WITHIN REACH.
--- NOTE | 2019-07-06 02:23 | NUR ---
PT RESTING WITH EYES CLOSED. RESP EVEN AND REGULAR. SR UP X2, CALL LIGHT WITHIN REACH.
--- NOTE | 2019-07-06 04:43 | NUR ---
PT AWAKE; DENIES ANY DISCOMFORT. CALL LIGHT WITHIN REACH.
--- NOTE | 2019-07-06 06:33 | NUR ---
HIBICLENS SHOWER IN PROGRESS.
--- NOTE | 2019-07-06 07:17 | NUR ---
PT RESTING, RR EVEN AND UNLABORED. DROPLET PRECAUTIONS IN PLACE. DENIES NEEDS OR PAIN AT THIS TIME. IV TO LEFT FOREARM, SL AT THE MOMENT. SPOUSE @ BEDSIDE. BED IN LOWEST POSITION. CALL LIGHT WITHIN REACH. WILL CONTINUE TO MONITOR.
[2019-07-06 14:08] LABS: PROTEIN C - ANTIGEN 135 % (60-150); PROTEIN C - FUNCTIONAL 127 % (73-180)
--- NOTE | 2019-07-06 15:57 | NUR ---
DR JAYNA CURRAN
--- NOTE | 2019-07-06 16:30 | NUR ---
PT ARRIVED TO THE UNIT WITH DENTAL CHAIRSIDE ASSISTANT TEAM. PT INTUBATED WITH A 7.[address] AT 23 AT THE LIP. PICC LINE IN THE RT UPPER ARM. PT SEDATED AND HOLMAN PLACED UPON ARRIVAL. POSITIONED FOR COMFORT WILL CONTINUE TO MONITOR.
--- NOTE | 2019-07-06 17:40 | NUR ---
DR. GREWAL EXCHANGED THE 7.0 ETT TUBE TO A 8.0 ETT TUBE PT SEDATED AND POSITIONED FOR COMFORT. WILL CONTINUE TO MONITOR.
--- NOTE | 2019-07-06 19:00 | NUR ---
REPORT RECEIVED. PT SEDATED, OPENS EYES. NO ACUTE DISTRESS NOTED AT THIS TIME. PT PICC INFUSING, SEE IV FLOWSHEET. LT FOREARM PIV TO SALINE LOCK, SEE IV FLOWSHEET. ASSESSMENT COMPLETED, SEE FLOWSHEET. RIVER IN PLACE, PT ON VENT. WILL CONTINUE TO MONITOR.
--- NOTE | 2019-07-06 21:00 | NUR ---
PT SEDATED, OPENS EYES. NO ACUTE DISTRESS NOTED AT THIS TIME. FAMILY AT BEDSIDE. WILL CONTINUE TO MONITOR.
--- NOTE | 2019-07-06 21:25 | NUR ---
UPDATE CALLED TO DR. CASAREZ, NEW ORDERS RECIEVED
--- NOTE | 2019-07-06 23:00 | NUR ---
PT SEDATED, OPENS EYES. NO ACUTE DISTRESS NOTED, WILL CONTINUE TO MONITOR.
[2019-07-07] VITALS (60 sets, daily range): BP systolic 76–133; BP diastolic 59–103
--- NOTE | 2019-07-07 01:00 | NUR ---
PT SEDATED, OPENS EYES. NO ACUTE DISTRESS NOTED. WILL CONTINUE TO MONITOR.
--- NOTE | 2019-07-07 03:00 | NUR ---
PT GIVEN COMPLETE BED BATH, COMPLETE LINEN CHANGE. NO ACUTE DISTRESS NOTED, WILL CONTINUE TO MONITOR.
--- NOTE | 2019-07-07 05:00 | NUR ---
PT SEDATED, OPENS EYES. NO ACUTE DISTRESS, WILL CONTINUE TO MONITOR.
[2019-07-07 05:12] LABS: BASOPHILS 0 % (0-2); EOSINOPHILS 0 % (0-7); HEMATOCRIT 44.2 % (42.0-54.0); HEMOGLOBIN 14.2 g/dL (13.5-17.5); IMMATURE GRANULOCYTES 0.3 % (0-5); LYMPHOCYTES 2.7 % (15-50); MCH 31.3 pg (26.0-34.0); MCHC 32.1 g/dL (31.0-37.0); MCV 97.6 fL (80.0-100.0); MEAN PLATELET VOLUME 9.3 fL (7.4-10.4); MONOCYTES 2.1 % (2-11); NEUTROPHILS 94.9 % (40-80); PLATELET COUNT 152 10x3/uL (130-400); RBC 4.53 10x6/uL (4.20-6.10); RDW 14.2 % (11.5-14.5); WBC 18.3 10x3/uL (4.8-10.8)
[2019-07-07 05:42] LABS: ANION GAP 10.9 mmol/L (8-16); CALCIUM 7.3 mg/dL (8.5-10.1); CARBON DIOXIDE 28.3 mmol/L (21.0-32.0); CREATININE - SERUM 1.3 mg/dL (0.6-1.3); POTASSIUM - SERUM 4.2 mmol/L (3.5-5.1)
--- NOTE | 2019-07-07 07:00 | NUR ---
REPORT RECEVIED FROM THE OFF GOING RN. SEE ASSESSMENT IN THE PTS FLOW SHEET. PT SEDATED ON THE VENT. PT NOT FOLLOWING COMMANDS. 8.0 ETT 26 AT THE LIP. OGT TO LIS WITH CHUNKY STOMACH SECREATIONS NOTED. BLE SWELLING NOTED. FC NOTED WITH CLEAR, YELLOW URINE. CALL LIGHT IN REACH. WILL CONT POC.
--- NOTE | 2019-07-07 09:00 | NUR ---
SC REPOSITIONED. VSS. CALL LIGHT IN REACH. WILL CONT POC.
--- NOTE | 2019-07-07 10:21 | NUR ---
WHENEVER PT REPOSITIONED, PT DESATED. NO SECREATIONS WHENEVER SUCTIONED. RT NOTIFIED. RT LEVAGED AND AMBUGAED/SUCTION. THICK BROWN SECREATIONS THAT RESEMBLES VOMIT NOTED. O2 SATURATION INCREASED TO 95%. WILL CONT POC.
--- NOTE | 2019-07-07 12:27 | NUR ---
AT THE PTS BEDSIDE. DR COKER AT THE PTS BEDSIDE. DR COKER PLANNING FOR BRONCH. PTS GIVES CONSENT.
--- NOTE | 2019-07-07 13:02 | NUR ---
DR COKER AT THE PTS BEDSIDE AND DID BRONCH. PT TOLERATED WELL.
--- NOTE | 2019-07-07 15:00 | NUR ---
REASSESSMENT COMPLETED. SEE FLOW SHEET. CALL LIGHT IN REACH. WILL CONT POC.
[2019-07-07 15:18] LABS: MACROPHAGES BF 4 %; NEUT - BF 90 %
[2019-07-07 15:23] LABS: MACROPHAGES BF 6 %; NEUT - BF 93 %
[2019-07-07 17:08] LABS: FACTOR II DNA ANALYSIS Negative (())
--- NOTE | 2019-07-07 17:45 | NUR ---
PT DESATING 88-89% NO SECREATIONS WHENEVER DEEP SUCTIONED. RT NOTIFIED AND ON THEIR WAY.
--- NOTE | 2019-07-07 17:58 | NUR ---
SPOKE WITH DR DR CASAREZ ABOUT THE PT BEING HYPOTENSIVE AND TACHYCARDIC. 500CC BOLUS NOW.
--- NOTE | 2019-07-07 18:16 | NUR ---
BP 90/71 O2 SAT 90%.
--- NOTE | 2019-07-07 18:56 | NUR ---
SPOKE WITH DR CASAREZ. BOLUS COMPLETED. START D5NS AT 100ML/H, ANOTHER 500 CC NS BOLUS. WILL CONT POC.
--- NOTE | 2019-07-07 19:00 | NUR ---
PT SEDATED, RESPONDS TO DEEP STIMULI. PT ON VENT, SOFT WRIST RESTRAINTS TO BOTH WRISTS. PIV TO LT FOREARM TO SL, PICC IN RT UPPER ARM INFUSING, SEE IV FLOWSHEET. NO ACUTE DISTRESS AT THIS TIME. ASSESSMENT COMPLETE, SEE FLOWSHEET. RIVER IN PLACE, WILL CONTINUE TO MONITOR.
--- NOTE | 2019-07-07 21:00 | NUR ---
PT SEDATED, AROUSES WITH DEEP STIMULI. NO ACUTE DISTRESS NOTED. WILL CONTINUE TO MONITOR.
--- NOTE | 2019-07-07 23:00 | NUR ---
PT SEDATED, HR TACHYCARDIC AT 125. WILL CONTINUE TO MONITOR.
[2019-07-08] VITALS (85 sets, daily range): BP systolic 66–152; BP diastolic 45–119
--- NOTE | 2019-07-08 01:00 | NUR ---
PT SEDATED, STILL TACHYCARDIC AND HYPOTENSIVE. REPOSITIONED AND ORAL CARE PROVIDED.
--- NOTE | 2019-07-08 03:00 | NUR ---
PT SEDATED, CHG BATH GIVEN, NO ACUTE DISTRESS NOTED. WILL CONTINUE TO MONITOR.
[2019-07-08 04:23] LABS: BASOPHILS 0 % (0-2); EOSINOPHILS 0 % (0-7); HEMATOCRIT 47.4 % (42.0-54.0); HEMOGLOBIN 14.9 g/dL (13.5-17.5); IMMATURE GRANULOCYTES 0.4 % (0-5); LYMPHOCYTES 3.6 % (15-50); MCH 31.4 pg (26.0-34.0); MCHC 31.4 g/dL (31.0-37.0); MEAN PLATELET VOLUME 8.9 fL (7.4-10.4); MONOCYTES 2.5 % (2-11); NEUTROPHILS 93.5 % (40-80); PLATELET COUNT 143 10x3/uL (130-400); RBC 4.75 10x6/uL (4.20-6.10); RDW 14.5 % (11.5-14.5); WBC 14.3 10x3/uL (4.8-10.8)
[2019-07-08 04:26] LABS: MCV 99.8 fL (80.0-100.0)
[2019-07-08 05:12] LABS: ANION GAP 14.2 mmol/L (8-16); CARBON DIOXIDE 25.7 mmol/L (21.0-32.0)
--- NOTE | 2019-07-08 05:15 | NUR ---
DR CASAREZ CALLED REGARDING LAB VALUES. UPDATED ON STATUS, NEW ORDERS RECEIVED.
[2019-07-08 05:17] LABS: CREATININE - SERUM 2.2 mg/dL (0.6-1.3); POTASSIUM - SERUM 4.9 mmol/L (3.5-5.1)
[2019-07-08 07:09] LABS: HEPATITIS C ANTIBODY <0.1 S/CO RAT (0.0-0.9)
--- NOTE | 2019-07-08 07:30 | NUR ---
report recieved. patient sedated and intubated. no acute distress at this time. hypotensive. tachycardic. septic per labs. afebrile during this time. cold extremities. weak pulses bilat. warm blankets provided. spo2 95%. warm blanket provided for arm with spo2. dopamine at 7 upon arrival. a bag of bicarb with [address] faith infusing at 100 at this time. was told in report no levophed that the bicarb shoulde help after done. no bm at this time. patient responds to pain. responds to heavy stimuli. oral care done. respositioned. genrealized swelling in extremities. no signs of infiltration or infection at picc site. propofol at 20. fentanyl at 100. chart reviewed. belongings within reach. side rails x2. bed low and locked. and call light within reach.
--- NOTE | 2019-07-08 09:19 | NUR ---
pedal pulses undopplerable. devonte trejo attempted. good groin pulses. radial pulse dopplerable. warm compress aplied to extremities. will reasses.
--- NOTE | 2019-07-08 09:36 | NUR ---
CALLED PHARMACY TO MAKE SURE WE WERE HOLDING VANC. TITRATING PER PHARMACY.
--- NOTE | 2019-07-08 10:07 | NUR ---
SPOKE WITH DR. GOLDEN RE: RENAL CONSULT
--- NOTE | 2019-07-08 10:58 | NUR ---
dr faith stated we do not need nephrology on the patient and to cancel the consult.
--- NOTE | 2019-07-08 10:59 | NUR ---
patient dessating. levophed of 4. spo2 83. respiratory suctioned and did recruitment. no success in bringing spo2 up. spoke with family regarding code status. full code. crash cart placed at bedside. combo pads placed on patient. warm blankets put on extremities to promote perfusion. spo2 only read on finger. will not read on forehead. abg done. patient does not reply stimuli. per dr mendez all sedation was turned off to see if he would respond. did not wake up or open eyes. provided history use of crack cocaine inhaled and smoking marijuana.
--- NOTE | 2019-07-08 12:59 | NUR ---
patient dessated to 69% all of a sudden. patient was not coughing or stimulated. paged dr mendez. recruitment was done. patient was essentially bagged until spo2 came back up to 90%. that is what dr mendez wanted us to do. he said there is nothing more to do for the patient.
--- NOTE | 2019-07-08 13:54 | NUR ---
no secretions when patient suctioned.
--- NOTE | 2019-07-08 13:54 | NUR ---
echo done at this time
--- NOTE | 2019-07-08 13:54 | NUR ---
patient kept on left side per dr mendez
--- NOTE | 2019-07-08 15:00 | NUR ---
see assessment. see adl's.
[2019-07-08 15:08] LABS: ACID FAST SMEAR Negative (()); AFB SPECIMEN PROCESSING Concentration (())
--- NOTE | 2019-07-08 17:22 | NUR ---
per dr mendez.. patient to stay with left side elevated and right side down to help oxgenation.
--- NOTE | 2019-07-08 17:28 | NUR ---
FAMILY AT BEDSIDE. FULL CODE. UPDATE GIVEN
--- NOTE | 2019-07-08 18:00 | NUR ---
patient on bedside commode. during this time.
--- NOTE | 2019-07-08 19:00 | NUR ---
SHIFT ASSESSMENT COMPLETED. PT CARE ASSUMED.MONITORS ON AND WORKING, VITALS STABLE, PT SEDATED ON VENT, HOLMAN STAT LOCKED IN PLACE, SEE FLOW SHEET FOR FURTHER DETAILS. WILL CONTINUE TO OBSERVE.
--- NOTE | 2019-07-08 21:00 | NUR ---
FAMILY AT BEDSIDE, UPDATE PROVIDED, MONITORS ON AND WORKING, VITALS STABLE. WILL CONTINUE TO OBSERVE.
--- NOTE | 2019-07-08 23:00 | NUR ---
PT REPOSITIONED FOR COMFORT. MONITORS ON AND WORKING, VITALS STABLE, SEE FLOW SHEET FOR FURTHER DETAILS. WILL CONTINUE TO OBSERVE.
[2019-07-09] VITALS (24 sets, daily range): BP systolic 87–128; BP diastolic 58–90
--- NOTE | 2019-07-09 01:00 | NUR ---
PT REPOSITIONED FOR COMFORT. MONITORS ON AND WORKING, VITALS STABLE, WILL CONTINUE TO OBSERVE.
--- NOTE | 2019-07-09 03:00 | NUR ---
MONITORS ON AND WORKING, VITALS STABLE, PT SEDATED ON VENT, HOLMAN STAT LOCKED IN PLACE, SEE FLOW SHEET FOR FURTHER DETAILS. WILL CONTINUE TO OBSERVE.
[2019-07-09 03:20] LABS: BASOPHILS 0 % (0-2); EOSINOPHILS 0 % (0-7); HEMATOCRIT 37.5 % (42.0-54.0); HEMOGLOBIN 12.9 g/dL (13.5-17.5); IMMATURE GRANULOCYTES 0.5 % (0-5); LYMPHOCYTES 6.9 % (15-50); MCH 32.4 pg (26.0-34.0); MCHC 34.4 g/dL (31.0-37.0); MCV 94.2 fL (80.0-100.0); MEAN PLATELET VOLUME 9.6 fL (7.4-10.4); MONOCYTES 3.6 % (2-11); PLATELET COUNT 104 10x3/uL (130-400); RBC 3.98 10x6/uL (4.20-6.10); RDW 13.9 % (11.5-14.5); WBC 10.9 10x3/uL (4.8-10.8)
[2019-07-09 03:37] LABS: ANION GAP 12.7 mmol/L (8-16); CARBON DIOXIDE 26.2 mmol/L (21.0-32.0); CREATININE - SERUM 2.9 mg/dL (0.6-1.3); POTASSIUM - SERUM 3.9 mmol/L (3.5-5.1)
[2019-07-09 03:38] LABS: CALCIUM 6.9 mg/dL (8.5-10.1)
--- NOTE | 2019-07-09 04:25 | NUR ---
DECREASED FIO2 TO 60% PER ABG
--- NOTE | 2019-07-09 05:00 | NUR ---
CENTRAL LINE DRESSING CHANGE AT THIS TIME, MONITORS ON AND WORKING, VITALS STABLE, PT REMAINS OFF LEVOPHED. WILL CONTINUE TO OBSERVE.
--- NOTE | 2019-07-09 07:25 | NUR ---
report recieved. patient still remains on right side with left side up per dr mendez. report recieved that no desaturation occured last night and was told that pedal pulses were now palpable. see assessment for morning shift, see adl's. no acutes ditress. will continue to leave patietn on rigt side until dr mendez states otherwise
--- NOTE | 2019-07-09 08:45 | NUR ---
Nutrition follow-up: Pt intubated, sedated with propofol @ 8.9 ml/hr NPO Labs reviewed Wt: 173# Nutrition support will need to be started within 24 hours Recommend Nepro @ 25 ml/hr with gradual increase to goal rate of 50 ml/hr with 100 ml H2O flush Q [address]N following.
--- NOTE | 2019-07-09 11:00 | NUR ---
NEW PILLOW CASES PROVIDED AND NEW BLANKET PROVIDED TO PATIENT. POSITIONED COMFORTABLY. MOVEMENT CAUSES PATIENT TO DESATURATE. UNABLE TO BATHE DUE TO RISK OF DESATURATION. DURING THIS TIME VSS AND MONITORS WORKING AND ATTACHED TO PATIENT. NO ACUTE DISTRESS. PULSES ARE PALPABLE. MAINTAING OWN BLOOD PRESSURE. OFF THE SEDATION AT THIS TIME PER DR COKER TO TURN IT OFF AND SEE HOW PATIENT DOES.
--- NOTE | 2019-07-09 13:02 | NUR ---
DR CASAREZ AT BEDSIDE AT THIS TIME.
--- NOTE | 2019-07-09 13:58 | NUR ---
PATIENT DESATTED INTO 69% WHEN GETTING PATIENT READY TO GO TO VQ SCAN. LEIDA ON FLOOR. ASKED IF STILL WANTED TO GO EVEN IF PATIENT WAS UNSTABLE. HE SAID WE WOULD POSTPONE UNTIL PATIENT WAS STABLE ENOUGH TO GO.
--- NOTE | 2019-07-09 14:39 | NUR ---
patient on 100% vent and only saturation is 92%.
--- NOTE | 2019-07-09 15:00 | NUR ---
PULSES PALPABLE IN LOWER AND UPPER EXTREMITIES
--- NOTE | 2019-07-09 17:50 | NUR ---
patient positioned on his back to give him a rest from laying on his right side.
--- NOTE | 2019-07-09 19:00 | NUR ---
REPORT RECEIVED. PT SEDATED ON VENT. SOFT WRIST RESTRAINTS TO BOTH WRISTS. HOLMAN IN PLACE DRAINING YELLOW URINE. LT FOREARM PIV, RT UPPER ARM PICC INFUSING, SEE IV FLOWSHEET. ASSESSMENT COMPLETE, SEE FLOWSHEET.
--- NOTE | 2019-07-09 21:00 | NUR ---
PT SEDATED ON VENT. REPOSITIONED NEEDED, WILL CONTINUE TO MONITOR.
--- NOTE | 2019-07-09 23:00 | NUR ---
PT SEDATED ON VENT. NO ACUTE DISTRESS NOTED AT THIS TIME.
[2019-07-10] VITALS (18 sets, daily range): BP systolic 105–134; BP diastolic 74–95
--- NOTE | 2019-07-10 01:00 | NUR ---
PT SEDATED AND INTUBATED. VITALS STABLE, WILL CONTINUE TO MONITOR.
--- NOTE | 2019-07-10 03:00 | NUR ---
PT SEDATED ON VENT. TEMP STARTING TO DECREASE, 95.5 ORALLY AND AXILLARY. WARM BLANKETS PROVIDED, WILL CONTINUE TO MONITOR.
--- NOTE | 2019-07-10 05:00 | NUR ---
PT SEDATED, ON VENT. VITALS STABLE, WILL CONTINUE TO MONITOR.
[2019-07-10 05:55] LABS: BASOPHILS 0 % (0-2); EOSINOPHILS 0 % (0-7); HEMATOCRIT 38.9 % (42.0-54.0); HEMOGLOBIN 13.3 g/dL (13.5-17.5); IMMATURE GRANULOCYTES 0.2 % (0-5); LYMPHOCYTES 4.1 % (15-50); MCH 31.4 pg (26.0-34.0); MCHC 34.2 g/dL (31.0-37.0); MEAN PLATELET VOLUME 9.5 fL (7.4-10.4); MONOCYTES 3.6 % (2-11); NEUTROPHILS 92.1 % (40-80); PLATELET COUNT 96 10x3/uL (130-400); RBC 4.23 10x6/uL (4.20-6.10); RDW 13.7 % (11.5-14.5); WBC 11.8 10x3/uL (4.8-10.8)
[2019-07-10 06:22] LABS: ANION GAP 12.9 mmol/L (8-16); CALCIUM 8.2 mg/dL (8.5-10.1); CARBON DIOXIDE 27.7 mmol/L (21.0-32.0); CREATININE - SERUM 3.1 mg/dL (0.6-1.3); POTASSIUM - SERUM 3.6 mmol/L (3.5-5.1)
--- NOTE | 2019-07-10 08:24 | NUR ---
SEDATION OFF ORDERED BY DR COKER.
[2019-07-10 09:57] LABS: ANISOCYTOSIS OCC; HYPOCHROMASIA OCC; PLATELET ESTIMATE DECREASED; TARGET CELLS OCC
--- NOTE | 2019-07-10 12:00 | NUR ---
ASSUMED CARE OF PT FROM GIGI BRAVO. PT RESTING IN BED, VSS AND WNL. PT IS ABLE TO SHAKE HEAD TO YES AND NO QUESTIONS. HOLMAN CATHTER NOTED DRAINING URINE FREELY VIA GRAVITY. ETT SECURED. NO SIGNS OF DISTRESS NOTED. WILL CONT TO FOLLOW POC
--- NOTE | 2019-07-10 14:00 | NUR ---
PT RESTING IN BED, BED ALARM ON. FAMILY AT BEDSIDE. VSS. NO SIGNS OF DISTRESS NOTED. ETT SECURED. WILL CONT TO FOLLOW POC
[2019-07-10 15:09] LABS: HCVGENO - HEP C QUANT HCV Not Detected IU/mL (())
--- NOTE | 2019-07-10 18:00 | NUR ---
PT RESTING IN BED, VSS AND WNL. CALL LIGHT WITHIN REACH. BED ALARM ON. WILL CONT TO FOLLOW POC
--- NOTE | 2019-07-10 19:24 | NUR ---
CALLED [facility] AND TALKED TO WALTER. GAVE HER THE IDENTITY OF THE PT AND THE HOSPITAL NUMBER [phone] TO CALL BACK. AWAITING CALL BACK NOW
--- NOTE | 2019-07-10 19:26 | NUR ---
PT HR IN THE 130S, O2 SAT DROPPED TO 60% WITH GOOD WAVEFORM, PT WAS COUGHING AND SITTING UP IN BED. PROPOFOL RESTARTED AT 5MCG/KG/MIN. 100% FiO2 BUTTON PRESSED AND PT INLINE SUCTIONED. YONKER USED TO SUCTION MOUTH. PT O2 STILL SHOWING 60%, RESP THERAPY PAGED. PT STOPPED COUGHING AND WOULD NOT OPEN EYES. SECOND O2 PULSE OX SENSOR OBTAINED. O2 90% WITH NEW PULSE OX. PT STILL NOT OPENING EYES. BP 64/40. STOPPED PROPOFOL. PLACED PT IN [place] AND NS TURNED UP TO 999. LEVOPHED STARTED AT 5MCG/MIN. PT BP BEGAN TO INCREASE. NURSE STAYED AT BEDSIDE. BP CONT TO INCREASE BUT HR STARTED TO DROP AND PT STARTED TO HAVE MULTIPLE PVCS. HR DECREASED TO 40S. SECOND NURSE PAGED TO COME INTO ROOM. ATROPINE IVP GIVEN. PT THEN WENT INTO [employer] AND [facility] WAS CALLED. SEE CODE BLUE SHEET
--- NOTE | 2019-07-13 09:38 | MORECARE ---
CASE MANAGEMENT DISCHARGE SUMMARY PATIENT: ARNAV PEREZ UNIT: [id number] ADM DATE: 06/28/19 AGE: 54 : 63 SEX: M ROOM/BED: D.2303 AUTHOR: KASHDOC PHYSICIAN: REFERRING PHYSICIAN: ALEXIS TEJEDA MD DATE OF SERVICE: 07/13/19 Discharge Plan Patient Name: ARNAV PEREZ Facility: [facility]:[place] : 1965 Planned Disposition: Home Anticipated Discharge Date: Discharge Date: 07/10/2019 Expected LOS: Initial Reviewer: [email or web address] Initial Review Date: 07/03/2019 Generated: 07/13/19 10:38 am DCP- Discharge Planning Updated by [email or web address]: Navi Urbano on 07/03/19 3:[address] Patient Name: ARNAV PEREZ Admission Status: ER Accout number: [id number] Admission Date: 06-28-2019 : 1965 Admission Diagnosis: Attending: ALEXIS OG Current LOS: 5 Anticipated DC Date: Planned Disposition: Home Primary Insurance: [employer]OV[employer]S MANAGED MEDICAID Discharge Planning Comments: CM MET WITH PT AND SPOUSE IN ROOM TO DISCUSS DISCHARGE PLANNING AND NEEDS. ARNAV PEREZ provided verbal consent to discuss current and ongoing needs with/in the presence of: SPOUSE, AARON. PT REPORTS THEY HAVE BEEN HOMELESS UNTIL NOW AND PT IS INDEPENDENT IN HIS CARE. PT STATES THAT THEY NOW HAVE AN APARTMENT TO MOVE INTO WHEN HE IS DISCHARGED. IT IS UP 20 STEPS BUT LEVEL INSIDE THE APARTMENT. . PT HAS NO MEDICAL EQUIPMENT AND NO OUTSIDE SERVICES ASSISTING IN THE HOME. CM DISCUSSED AVAILABILITY OF HOME HEALTH, REHAB SERVICES AND MEDICAL EQUIPMENT. PT DENIES DISCHARGE NEEDS, REPORTS A FRIEND WILL PICK HE AND HIS UP FOR DISCHARGE HOME. PT PLANS TO DISCHARGE HOME WITH , HAS NO ANTICIPATED DISCHARGE NEEDS AT TH IS TIME. CM PROVIDED [facility] CL[facility] INFORMATION PT HAS NO PRIMARY CARE DOCTOR. CM TO CONTINUE TO FOLLOW AND ASSIST IF NEEDED. Hair Baler: Navi Urbano DCPIA - Discharge Planning Initial Assessment Updated by [email or web address]: Navi Urbano on 07/03/19 4:36 pm * Is the patient Alert and Oriented? Yes * How many steps to enter\exit or inside your home? 20 * PCP NONE - PROVIDED WITH [facility] * Pharmacy [facility] * Preadmission Environment Homeless * Other Environment LIVING WITH FRIENDS * Facility Name NONE * ADLs Independent * Equipment None * Other Equipment NO MEDICAL EQUIPMENT PROVIDER PREFERNCE * List name and contact numbers for known caregivers / representatives who currently or will assist patient after discharge: AARON PEREZ, SPOUSE, * Verbal permission to speak to the caregivers and representatives has been obtained from the patient. Yes * Community resources currently utilized None * Please name any agencies selected above. NONE * Additional services required to return to the preadmission environment? No * Can the patient safely return to the preadmission environment? Yes * Has this patient been hospitalized within the prior 30 days at any hospital? No Last DP export: 07/03/19 3:46 Patient Name: ARNAV PEREZ Page [id number] at 0938 All edits/amendments must be made on the electronic document DICTATION DATE: 07/13/19937 SQL TECH: LU 07/13/19937 RPT#: [id number] DC DATE:07/10/19 STATUS: DIS IN [facility] [address] [place] [address] END OF REPORT
--- NOTE | 2019-07-13 17:00 | NUR ---
Per CMS protocol, restraint report logged into data base.
== END 2019-07-10 19:05 | DRG 207 ==
LOC: D.ER 04:42 → D.ICU 06:21 → D.M2 06:21 → D.ICU 07-06 15:50
PROVIDERS: Emergency Medicine; Internal Medicine Interventional Cardiology; Internal Medicine Nephrology; Internal Medicine Pulmonary Disease; ADMIT Family Medicine; ATTEND Family Medicine
PROC: 0BH17EZ Insertion of Endotracheal Airway into Trachea, Via Natural or Artificial Opening (ICD-10-PCS; 2019-07-06)
PROC: 02H633Z Insertion of Infusion Device into Right Atrium, Percutaneous Approach (ICD-10-PCS; 2019-07-06)
PROC: B548ZZA Ultrasonography of Superior Vena Cava, Guidance (ICD-10-PCS; 2019-07-06)
PROC: 5A1955Z Respiratory Ventilation, Greater than 96 Consecutive Hours (ICD-10-PCS; principal; 2019-07-06 13:42)
PROC: 0B9J8ZX Drainage of Left Lower Lung Lobe, Via Natural or Artificial Opening Endoscopic, Diagnostic (ICD-10-PCS; 2019-07-07)
PROC: 0B9F8ZX Drainage of Right Lower Lung Lobe, Via Natural or Artificial Opening Endoscopic, Diagnostic (ICD-10-PCS; 2019-07-07)
DX: J96.01 Acute respiratory failure with hypoxia (principal); I26.99 Other pulmonary embolism without acute cor pulmonale; J15.212 Pneumonia due to Methicillin resistant Staphylococcus aureus; I50.23 Acute on chronic systolic (congestive) heart failure; J45.901 Unspecified asthma with (acute) exacerbation; F17.213 Nicotine dependence, cigarettes, with withdrawal; N17.9 Acute kidney failure, unspecified; I82.431 Acute embolism and thrombosis of right popliteal vein; F14.90 Cocaine use, unspecified, uncomplicated; F12.90 Cannabis use, unspecified, uncomplicated; E87.5 Hyperkalemia; J20.9 Acute bronchitis, unspecified